=== PATIENT | female | born 1990 | race Hispanic/Latino ===

== ENCOUNTER 2018-10-20 02:04 | Observation (INO) | payer SELFPAY ==
[~2018-10-20] VITALS: Ht 152.4 cm; Wt 64.4 kg
[2018-10-20] MEDS ORDERED: LACTATED RINGERS 1000ML 1,000 ML IV PRN (02:09)
[2018-10-20 02:41] LABS: APPEARANCE,URINE Clear (CLEAR); BILIRUBIN,URINE Negative (NEGATIVE); COLOR,URINE Yellow (YELLOW); GLUCOSE, URINE (UA) Negative (NEGATIVE); KETONES,URINE Negative (NEGATIVE); LEUKOCYTE ESTERASE ,URINE Large (NEGATIVE); NITRATE,URINE Negative (NEGATIVE); OCCULT BLOOD,URINE Negative (NEGATIVE); PH,URINE 7.5 (5.0-8.0); PROTEIN,URINE Negative (NEGATIVE)
[2018-10-20 02:48] LABS: AMPHET/METH SCREEN,URINE NEGATIVE (NEGATIVE); BARBITURATE SCREEN, URINE NEGATIVE (NEGATIVE); BENZODIAZEPINES SCREEN,URINE NEGATIVE (NEGATIVE); CANNABINOID SCREEN,URINE NEGATIVE (NEGATIVE); COCAINE SCREEN,URINE NEGATIVE (NEGATIVE); OPIATE SCREEN,URINE NEGATIVE (NEGATIVE); PHENCYCLIDINE SCREEN,URINE NEGATIVE (NEGATIVE)
[2018-10-20 03:08] VITALS: BP 128/73
[2018-10-20 03:11] LABS: BACTERIA,URINE Moderate /HPF (None Seen); RBC,URINE 0-1 /HPF (0-1); YEAST,URINE BUDDING Few /HPF (None Seen)
[2018-10-20 03:12] LABS: TRICHOMONAS,URINE Moderate /LPF (None Seen)
[2018-10-20] MEDS: TERBUTALINE SULFATE VIAL 1MG/ML SQ PRN ×3 (03:23→04:48)
[2018-10-20 05:08] LABS: HEMATOCRIT 30.8 % (36-48); MEAN CORPUSCULAR HEMOGLOBIN 24.4 pg (27.0-33.0); MEAN CORPUSCULAR HGB CONC 31.7 g/dL (32.0-36.0); NUCLEATED RED BLOOD CELLS 0.1 % (0.0-0.19); PLATELET COUNT (AUTO) 212 K/uL (130-400); RED CELL DISTRIBUTION WIDTH 16.1 % (11.0-15.5); WHITE BLOOD COUNT (AUTO) 7.9 K/uL (4.8-10.8)
[2018-10-20] MEDS ORDERED: METRONIDAZOLE 500 MG TABLET PO SCH (08:45)
[2018-10-20 10:11] LABS: RAPID PLASMA REAGIN NONREACTIVE (NONREACTIVE)
[2018-10-21] MEDS ORDERED: PREN-196 PO (05:04)
[2018-10-21] MEDS ORDERED: FOLI0.8C PO (05:05)
[2018-10-21] MEDS ORDERED: FERR-82 PO (05:05)
[2018-10-21 07:15] LABS: HEPATITIS Bs ANTIGEN SCREEN P Negative (Negative)
== END 2018-10-20 09:01 | disposition home or self-care (01) ==
LOC: EDH 02:04 → LDH 02:05
PROVIDERS: ADMIT Obstetrics & Gynecology; ATTEND Obstetrics & Gynecology
DX: O62.9 Abnormality of forces of labor, unspecified (principal); Z3A.37 37 weeks gestation of pregnancy; Z79.899 Other long term (current) drug therapy
CPT/HCPCS: 36415; 76805; 80305; 81001; 85027; 86592; 86701; 86850; 86900; 86901; 87340; 87390; 96372; 99284; G0378 ×7; J3105; 96360; 96361

== ENCOUNTER 2018-10-21 03:47 | Inpatient (IN) | payer SELFPAY ==
[~2018-10-21] VITALS: Ht 152.4 cm; Wt 64.0 kg
[2018-10-21] VITALS (19 sets, daily range): BP systolic 117–154; BP diastolic 57–91
[2018-10-21] MEDS ORDERED: LACTATED RINGERS 1000ML IV PRN (04:00)
[2018-10-21 04:41] LABS: APPEARANCE,URINE Cloudy (CLEAR); BILIRUBIN,URINE Negative (NEGATIVE); COLOR,URINE Yellow (YELLOW); GLUCOSE, URINE (UA) Negative (NEGATIVE); KETONES,URINE 15 mg/dL (NEGATIVE); LEUKOCYTE ESTERASE ,URINE Moderate (NEGATIVE); NITRATE,URINE Negative (NEGATIVE); OCCULT BLOOD,URINE Small (NEGATIVE); PROTEIN,URINE POS 1+ mg/dL (NEGATIVE)
[2018-10-21 04:56] LABS: BACTERIA,URINE Few /HPF (None Seen)
[2018-10-21] MEDS ORDERED: PREN-196 PO (05:04)
[2018-10-21] MEDS ORDERED: FOLI0.8C PO (05:05)
[2018-10-21] MEDS ORDERED: FERR-82 PO (05:05)
[2018-10-21] MEDS ORDERED: MEPERIDINE-PF 50 MG/ML SYG ONE (05:07)
[2018-10-21] MEDS ORDERED: MEPERIDINE-PF 50 MG/ML SYG IVP PRN (05:15)
[2018-10-21] MEDS ORDERED: PROMETHAZINE HCL 25 MG/ML 1ML AMPULE IM PRN ×2 (05:15→08:30)
[2018-10-21 05:16] LABS: MEAN CORPUSCULAR HEMOGLOBIN 24.3 pg (27.0-33.0); MEAN CORPUSCULAR HGB CONC 32.4 g/dL (32.0-36.0); MEAN CORPUSCULAR VOLUME 74.9 fL (79-99); NUCLEATED RED BLOOD CELLS 0.1 % (0.0-0.19); PLATELET COUNT (AUTO) 228 K/uL (130-400); RED BLOOD CELL COUNT(AUTO) 3.87 MIL/uL (4.00-5.50); WHITE BLOOD COUNT (AUTO) 7.4 K/uL (4.8-10.8)
[2018-10-21 05:28] LABS: AMPHET/METH SCREEN,URINE NEGATIVE (NEGATIVE); BARBITURATE SCREEN, URINE NEGATIVE (NEGATIVE); BENZODIAZEPINES SCREEN,URINE NEGATIVE (NEGATIVE); CANNABINOID SCREEN,URINE NEGATIVE (NEGATIVE); COCAINE SCREEN,URINE NEGATIVE (NEGATIVE); OPIATE SCREEN,URINE NEGATIVE (NEGATIVE); PHENCYCLIDINE SCREEN,URINE NEGATIVE (NEGATIVE)
[2018-10-21] MEDS ORDERED: LACTATED RINGERS 1000ML 1,000 ML IV SCH (07:00)
[2018-10-21] MEDS ORDERED: CALDOLOR 800MG+NS 250ML 250 ML IV PRN ×2 (07:00→18:00)
[2018-10-21] MEDS ORDERED: CEFAZOLIN SODIUM 1 GM VIAL IVP PRN (07:00)
[2018-10-21] MEDS ORDERED: OXYTOCIN 10 USP UNITS/ML ONE ×2 (07:19→07:22)
[2018-10-21] MEDS ORDERED: SUCCINYLCHOLINE 200MG/10ML SYR ONE (07:21)
[2018-10-21] MEDS ORDERED: LIDOCAINE PF 2% 5ML ABBOJECT ONE (07:21)
[2018-10-21] MEDS ORDERED: PROPOFOL 10 MG/ML 20ML VIAL IV ONE (07:21)
[2018-10-21] MEDS ORDERED: DURAMORPH PF1 MG/ML 10ML AMP IV ONE (07:22)
[2018-10-21 07:35] LABS: RAPID PLASMA REAGIN NONREACTIVE (NONREACTIVE)
[2018-10-21] MEDS ORDERED: GLYCOPYRROLATE 1 MG/5 ML SYRINGE ONE (07:44)
[2018-10-21] MEDS ORDERED: MEPERIDINE-PF 75 MG/ML SYG IM PRN (08:30)
[2018-10-21] MEDS ORDERED: ACETAMINOPHEN EXTRA STRENGTH 500 MG TABLET PO PRN (08:30)
[2018-10-21] MEDS ORDERED: BISACODYL 10 MG SUPP.RECT RC PRN (08:30)
[2018-10-21] MEDS ORDERED: LANOLIN 30GM OINTMENT TP PRN (08:30)
[2018-10-21] MEDS ORDERED: OXYTOCIN-LR 20 UNITS/1000 ML 1,000 ML IV PRN (08:30)
[2018-10-21] MEDS ORDERED: ACETAMINOPHEN-CODEINE 300/30MG TAB PO PRN (08:30)
[2018-10-21] MEDS ORDERED: SODIUM CHLORIDE 0.9% 10 ML VIAL IVP PRN (08:30)
[2018-10-21] MEDS ORDERED: DIPHENHYDRAMINE HCL 25 MG CAPSULE PO PRN (08:30)
[2018-10-21] MEDS ORDERED: DIPH,PERTUSS(ACELL),TET VAC/PF 0.5 ML VIAL IM SCH (08:30)
[2018-10-21] MEDS ORDERED: HYDROCODONE/ACETAMINOPHEN 5/325 MG TAB PO PRN (08:30)
--- NOTE | 2018-10-21 13:45 | NUR ---
PATIENT WAS TAKEN VIA W/C CARRYING BABY IN [place] TO FAMILY VEHICLE AND WAS DISCHARGED TO HER SIGNIFICANT OTHER AND HER MOTHER IN STABLE CONDITION. PATIENT WAS MEDICATED WITH MOTRIN PRIOR TO DISCHARGE AND VERBALIZED FEELING BETTER AND DENIED PAIN. Addendum: 10/21/18 at 1354 by NEEL CONNELL RN WRONG PATIENT
[2018-10-21] MEDS: CALDOLOR 800MG+NS 250ML 250 ML IV SCH (17:13)
[2018-10-21] MEDS ORDERED: NALOXONE HCL 0.4 MG/1 ML ML IVP PRN ×3 (18:00)
[2018-10-21] MEDS ORDERED: ONDANSETRON HCL 4 MG/2 ML VIAL IVP PRN (18:00)
[2018-10-21] MEDS ORDERED: DiphenhydrAMINE HCL 50 MG/ML VIAL IVP PRN (18:00)
[2018-10-21] MEDS: SIMETHICONE 80 MG TAB.CHEW PO PRN (21:26)
[2018-10-21] MEDS: DOCUSATE SODIUM 100 MG CAP PO SCH (21:27)
[2018-10-21] MEDS: DEXTROSE 5 %-0.45 % NACL 1,000 ML IV PRN (21:31)
[2018-10-22] MEDS: CALDOLOR 800MG+NS 250ML 250 ML IV SCH (03:02)
[2018-10-22 03:36] VITALS: BP 105/61
[2018-10-22] MEDS: DEXTROSE 5 %-0.45 % NACL 1,000 ML IV PRN (05:28)
[2018-10-22 06:28] LABS: HEMATOCRIT 25.5 % (36-48); MEAN CORPUSCULAR HGB CONC 31.5 g/dL (32.0-36.0); MEAN CORPUSCULAR VOLUME 76.2 fL (79-99); NUCLEATED RED BLOOD CELLS 0.1 % (0.0-0.19); PLATELET COUNT (AUTO) 190 K/uL (130-400); RED BLOOD CELL COUNT(AUTO) 3.35 MIL/uL (4.00-5.50); RED CELL DISTRIBUTION WIDTH 16.1 % (11.0-15.5); WHITE BLOOD COUNT (AUTO) 7.8 K/uL (4.8-10.8)
[2018-10-22 07:15] VITALS: BP 117/72
--- NOTE | 2018-10-22 08:00 | NUR ---
ASSESSMENT FUNDUS FIRM, BLEEDING SCANT. DERMABOND TO INCISION, INCISION REMAINS DRY AND INTACT. NO EDEMA NOTED TO BILATERAL EXTREMITIES.
[2018-10-22 08:11] LABS: HEPATITIS Bs ANTIGEN SCREEN P Negative (Negative)
[2018-10-22] MEDS ORDERED: IBUPROFEN 800 MG TAB PO SCH (08:30)
[2018-10-22] MEDS: MEASLES/MUMPS/RUBELLA VACCINE, LIVE 0.5 ML/VIAL SQ SCH ×2 (08:30→09:21)
--- NOTE | 2018-10-22 08:50 | NUR ---
ACTIVITY PATIENT AMBULATING IN HALLWAY ACCOMPANIED BY . NO DIZZINESS REPORTED. STEADY GAIT NOTED.
[2018-10-22] MEDS: LIDOCAINE 5% TOPICAL PATCH TP SCH (09:19)
[2018-10-22] MEDS: DOCUSATE SODIUM 100 MG CAP PO SCH ×2 (09:19→21:04)
[2018-10-22] MEDS: SIMETHICONE 80 MG TAB.CHEW PO PRN ×4 (09:19→21:04)
--- NOTE | 2018-10-22 10:50 | NUR ---
ROUNDS DR. STAHL ROUNDING ON PATIENT AT THIS TIME. POC DISCUSSED. QUESTIONS INVITED AND ANSWERED.
[2018-10-22 11:28] VITALS: BP 118/72
[2018-10-22] MEDS: IBUPROFEN 800 MG TAB PO SCH ×2 (11:40→19:17)
--- NOTE | 2018-10-22 11:40 | NUR ---
REPORT REPORT GIVEN TO JESSICA MESA FOR CONTINUITY OF CARE.
--- NOTE | 2018-10-22 13:35 | NUR ---
ACTIVITY PT AMBULATING HALLWAY, STEADY GAIT, TOLERATING WELL
[2018-10-22] MEDS: LACTATED RINGERS 1000ML 1,000 ML IV SCH (14:35)
[2018-10-22 15:17] VITALS: BP 122/81
[2018-10-22 19:34] VITALS: BP 120/89
--- NOTE | 2018-10-22 19:46 | NUR ---
Activity: Patient up at bedside chair complaints of cramping pain claimed, " Deacon pena 7:00 PM " Plan of care discussed with patient verbalizes understanding.
[2018-10-22 23:28] VITALS: BP 130/81
[2018-10-23 03:37] VITALS: BP 128/79
[2018-10-23] MEDS: IBUPROFEN 800 MG TAB PO SCH ×2 (03:38→13:34)
[2018-10-23] MEDS: LACTATED RINGERS 1000ML 1,000 ML IV SCH (03:55)
[2018-10-23 07:23] VITALS: BP 128/73
[2018-10-23] MEDS: LIDOCAINE 5% TOPICAL PATCH TP SCH (08:54)
[2018-10-23] MEDS: DOCUSATE SODIUM 100 MG CAP PO SCH (08:54)
[2018-10-23] MEDS: SIMETHICONE 80 MG TAB.CHEW PO PRN ×2 (08:54→13:33)
--- NOTE | 2018-10-23 10:20 | NUR ---
DR. STAHL ROUNDED AND DISCHARGED PATIENT TO HOME. PATIENT STABLE AND WAS INSTRUCTED TO FOLLOW UP WITH DR. MARIE IN ONE TO TWO WEEKS.
[2018-10-23 11:16] VITALS: BP 138/76
--- NOTE | 2018-10-23 11:20 | NUR ---
PATIENT WAS GIVEN DISCHARGE INSTRUCTIONS AND SCRIPT FOR PAIN MANAGEMENT AT HOME, DOSAGE AND FREQUENCY OF MEDICATIONS DISCUSSED WITH PATIENT. VERBALIZED UNDERSTANDING INSTRUCTIONS GIVEN.
--- NOTE | 2018-10-23 14:00 | NUR ---
PATIENT WAS TAKEN VIA W/C CARRYING BABY IN [place]MS AND WAS DISCHARGED TO FAMILY. PATIENT IN STABLE CONDITION AND DENIES PAIN.
== END 2018-10-23 14:00 | disposition home or self-care (01) | DRG 788 ==
LOC: EDH 03:47 → LDH 04:08 → OBSVTOIN 04:08 → WSH 09:40
PROVIDERS: ADMIT Obstetrics & Gynecology; ATTEND Obstetrics & Gynecology
PROC: 3E0134Z Introduction of Serum, Toxoid and Vaccine into Subcutaneous Tissue, Percutaneous Approach (ICD-10-PCS; 2018-10-21)
PROC: 10D00Z1 Extraction of Products of Conception, Low, Open Approach (ICD-10-PCS; principal; 2018-10-21 07:30)
DX: O34.211 Maternal care for low transverse scar from previous cesarean delivery (principal); O69.81X0 Labor and delivery complicated by cord around neck, without compression, not applicable or unspecified; Z37.0 Single live birth; Z3A.37 37 weeks gestation of pregnancy; Z23 Encounter for immunization
CPT/HCPCS: 36415; 59510; 80305; 81001; 85027; 86592; 86701; 86850; 86900; 86901; 87340; 87390; 90707; A4344; A4606; G0378; J0330; J0690; J1741; J2001; J2175; J2274; J2405; J2590; J2704; J3490; J7120